=== PATIENT | male | born 1995 | race Caucasian/White ===

== ENCOUNTER 2018-11-04 01:34 | Emergency (ER) | payer OTHER ==
[2018-11-04] MEDS ORDERED: Sodium Chloride 0.9% 1000 ML 1,000 ML IV STA ×2 (01:41→03:02)
[2018-11-04] MEDS ORDERED: Zofran 4 MG/2 ML VIAL IV ONE (01:41)
--- NOTE | 2018-11-04 01:41 | ERPHSYRPT ---
- History of Present Illness Time Seen by Provider: 11/04/18 01:41 Source: patient, EMS Exam Limitations: clinical condition, intoxication Physician History: 23 y/o white male brought into ED for acute alcohol intoxication, passing out and vomiting. pt was in a parking lot with friends when this occurred. pt denies head injury. pt denies any other illicit drug ingestion. Timing/Duration: today Severity of Symptoms-Max: moderate Severity of Symptoms-Current: moderate Context related to: other (partying no suicidal intention) Suicidal thoughts: other (none) Previous symptoms: no prior history Allergies/Adverse Reactions: bismuth subsalicylate [From Pepto-Bismol] Allergy (Verified 11/04/18 01:38) cephalexin [From Keflex] Allergy (Verified 11/04/18 01:38) Home Medications: No Reportable Medications [No Reported Medications] 11/04/18 [History] - Past Medical History Neurological History: No Pertinent History ENT History: No Pertinent History Cardiac History: No Pertinent History Respiratory History: No Pertinent History Endocrine Medical History: No Pertinent History Musculoskeletal History: No Pertinent History GI Medical History: No Pertinent History History: No Pertinent History Psycho-Social History: No Pertinent History Male Reproductive Disorders: No Pertinent History - Past Surgical History Neuro Surgical History: No Pertinent History Cardiac: No Pertinent History Respiratory: No Pertinent History Gastrointestinal: No Pertinent History Genitourinary: No Pertinent History Musculoskeletal: No Pertinent History Male Surgical History: No Pertinent History - Review of Systems Constitutional: No Symptoms Eyes: No Symptoms Ears, Nose, & Throat: No Symptoms Respiratory: No Symptoms Cardiac: No Symptoms Abdominal/Gastrointestinal: No Symptoms Genitourinary Symptoms: No Symptoms Musculoskeletal: No Symptoms Neurological: Other (acute etoh intoxication) Psychological: No Symptoms Endocrine: No Symptoms Hematologic/Lymphatic: No Symptoms Immunological/Allergic: No Symptoms All Other Systems: Reviewed and Negative - Nursing Vital Signs Nursing Vital Signs: Initial Vital Signs Temperature 98.0 F 11/04/18 01:38 Pulse Rate 81 11/04/18 01:38 Respiratory Rate 18 11/04/18 01:38 Blood Pressure 115/68 11/04/18 01:38 O2 Sat by Pulse Oximetry 97 11/04/18 01:38 Pain Scale Pain Intensity 0 - Physical Exam General Appearance: no apparent distress, lethargy (mildly lethargic etoh intoxication) Eyes, Ears, Nose, Throat Exam: normal ENT inspection, TMs normal, moist mucous membranes Neck Exam: normal inspection, non-tender, supple, full range of motion Respiratory Exam: normal breath sounds, lungs clear, airway intact, No chest tenderness, No respiratory distress Cardiovascular Exam: regular rate/rhythm, normal heart sounds, normal peripheral pulses Gastrointestinal/Abdominal Exam: soft, normal bowel sounds, No tenderness Extremities Exam: normal inspection, normal range of motion, No evidence of injury Appearance: impaired insight (secondary to intoxication) Behavior/Eye Contact/Speech: intoxicated appearance Skin Exam: normal color, warm, dry SpO2 Interpretation: normal O2 Delivery: Room Air Ordered Tests: Active Orders 24 hr Category Date Time Status Clean Catch Urine Specimen STAT Care 11/04/18 01:41 Active HEAD WITHOUT CONTRAST [CT] Stat Exams 11/04/18 03:03 Taken ACETAMINOPHEN Stat Lab 11/04/18 02:04 Completed CBC W DIFF Stat Lab 11/04/18 02:04 Completed CMP Stat Lab 11/04/18 02:04 Completed ETHYL ALCOHOL Stat Lab 11/04/18 02:04 Completed SALICYLATE Stat Lab 11/04/18 02:04 Completed UA W/RFX UR CULTURE Stat Lab 11/04/18 04:36 Completed Urine Triage Profile Stat Lab 11/04/18 04:36 Completed Medication Summary Discontinued Medications Generic Name Dose Route Start Last Admin Trade Name Macarioq PRN Reason Stop Dose Admin Famotidine 40 mg 11/04/18 01:55 11/04/18 02:08 Pepcid 20 Mg Vial IV 11/04/18 01:56 40 mg STAT ONE Administration Famotidine Confirm 11/04/18 02:07 Pepcid 20 Mg Vial Administered 11/04/18 02:08 Dose 40 mg IV .STK-MED ONE Sodium Chloride 1,000 mls @ 999 mls/hr 11/04/18 01:41 11/04/18 03:17 Sodium Chloride 0.9% 1000 Ml IV 11/04/18 02:41 Infused .Q1H1M STA Infusion Sodium Chloride Confirm 11/04/18 01:56 Sodium Chloride 0.9% 1000 Ml Administered 11/04/18 01:57 Dose 1,000 mls @ ud .ROUTE .STK-MED ONE Potassium Chloride 20 meq in 100 mls @ 50 mls/hr 11/04/18 02:50 11/04/18 03: 12 Potassium Chloride 20 Meq In Water 100ml IV 11/04/18 04:49 50 mls/hr STAT ONE Administration Sodium Chloride 1,000 mls @ 999 mls/hr 11/04/18 03:02 11/04/18 04:42 Sodium Chloride 0.9% 1000 Ml IV 11/04/18 04:02 Infused .Q1H1M STA Infusion Sodium Chloride Confirm 11/04/18 03:06 Sodium Chloride 0.9% 1000 Ml Administered 11/04/18 03:07 Dose 1,000 mls @ ud .ROUTE .STK-MED ONE Potassium Chloride Confirm 11/04/18 03:07 Potassium Chloride 20 Meq In Water 100ml Administered 11/04/18 03:08 Dose 100 mls @ ud IV .STK-MED ONE Ondansetron HCl 4 mg 11/04/18 01:41 11/04/18 02:08 Zofran 4 Mg/2 Ml Vial IV 11/04/18 01:42 4 mg STAT ONE Administration Ondansetron HCl Confirm 11/04/18 01:56 Zofran 4 Mg/2 Ml Vial Administered 11/04/18 01:57 Dose 4 mg .ROUTE .STK-MED ONE Lab/Rad Data: Laboratory Result Diagrams 11/04/18 02:04 11/04/18 02:04 Laboratory Results 11/04/18 11/04/18 11/04/18 Range/Units 04:36 04:36 02:04 WBC (4.0-10.5) K/mm3 RBC (4.1-5.6) M/mm3 Hgb (12.5-18.0) gm/dl Hct (42-50) % MCV (78-100) fl MCH (26-32) pg MCHC (32-36) g/dl RDW (11.5-14.0) % Plt Count (150-450) K/mm3 MPV (6-9.5) fl Gran % (36.0-66.0) % Eos # (Auto) (0-0.5) Absolute Lymphs (auto) (1.0-4.6) Absolute Monos (auto) (0.0-1.3) Lymphocytes % (24.0-44.0) % Monocytes % (0.0-12.0) % Eosinophils % (0.00-5.0) % Basophils % (0.0-0.4) % Absolute Granulocytes (1.4-6.9) Basophils # (0-0.4) Sodium 142 (137-145) mmol/L Potassium 3.2 L (3.5-5.1) mmol/L Chloride 108 H (98-107) mmol/L Carbon Dioxide 21 L (22-30) mmol/L Anion Gap 16.7 H (5-15) MEQ/L BUN 9 (9-20) mg/dL Creatinine 0.87 (0.66-1.25) mg/dL Estimated GFR > 60.0 ML/MIN Glucose 126 H (74-106) mg/dL Calcium 8.4 (8.4-10.2) mg/dL Total Bilirubin 0.60 (0.2-1.3) mg/dL AST 49 (17-59) U/L ALT 51 H (0-50) U/L Alkaline Phosphatase 51 (38-126) U/L Serum Total Protein 6.7 (6.3-8.2) g/dL Albumin 4.3 (3.5-5.0) g/dL Urine Color STRAW (YELLOW) Urine Appearance CLEAR (CLEAR) Urine pH 7.0 (5-6) Ur Specific Forbes 1.004 (1.005-1.025) Urine Protein NEGATIVE (Negative) Urine Ketones NEGATIVE (NEGATIVE) Urine Blood NEGATIVE (0-5) Kurtis/ul Urine Nitrite NEGATIVE (NEGATIVE) Urine Bilirubin NEGATIVE (NEGATIVE) Urine Urobilinogen NEGATIVE (0-1) mg/dL Ur Leukocyte Esterase NEGATIVE (NEGATIVE) Urine WBC (Auto) NONE (0-5) /HPF Urine RBC (Auto) NONE (0-2) /HPF U Epithel Cells (Auto) NONE (FEW) /HPF Urine Bacteria (Auto) NONE (NEGATIVE) /HPF Urine Culture Reflexed NO (NO) Urine Glucose NEGATIVE (NEGATIVE) mg/dL Salicylates < 1.0 L (2-20) mg/dL Urine Opiates Level NEGATIVE (NEGATIVE) Ur Methadone NEGATIVE (NEGATIVE) Acetaminophen < 10 L (10-30) ug/ml Urine Barbiturates NEGATIVE (NEGATIVE) Ur Phencyclidine (PCP) NEGATIVE (NEGATIVE) Urine Amphetamine NEGATIVE (NEGATIVE) U Benzodiazepine Level NEGATIVE (NEGATIVE) Urine Cocaine NEGATIVE (NEGATIVE) Urine Marijuana (THC) POSITIVE (NEGATIVE) Ethyl Alcohol 161 H (0-10) mg/dL 11/04/18 Range/Units 02:04 WBC 6.6 (4.0-10.5) K/mm3 RBC 4.80 (4.1-5.6) M/mm3 Hgb 14.9 (12.5-18.0) gm/dl Hct 43.6 (42-50) % MCV 90.8 (78-100) fl MCH 31.0 (26-32) pg MCHC 34.2 (32-36) g/dl RDW 13.4 (11.5-14.0) % Plt Count 205 (150-450) K/mm3 MPV 9.9 H (6-9.5) fl Gran % 58.1 (36.0-66.0) % Eos # (Auto) 0.01 (0-0.5) Absolute Lymphs (auto) 2.20 (1.0-4.6) Absolute Monos (auto) 0.52 (0.0-1.3) Lymphocytes % 33.6 (24.0-44.0) % Monocytes % 7.9 (0.0-12.0) % Eosinophils % 0.2 (0.00-5.0) % Basophils % 0.2 (0.0-0.4) % Absolute Granulocytes 3.81 (1.4-6.9) Basophils # 0.01 (0-0.4) Sodium (137-145) mmol/L Potassium (3.5-5.1) mmol/L Chloride (98-107) mmol/L Carbon Dioxide (22-30) mmol/L Anion Gap (5-15) MEQ/L BUN (9-20) mg/dL Creatinine (0.66-1.25) mg/dL Estimated GFR ML/MIN Glucose (74-106) mg/dL Calcium (8.4-10.2) mg/dL Total Bilirubin (0.2-1.3) mg/dL AST (17-59) U/L ALT (0-50) U/L Alkaline Phosphatase (38-126) U/L Serum Total Protein (6.3-8.2) g/dL Albumin (3.5-5.0) g/dL Urine Color (YELLOW) Urine Appearance (CLEAR) Urine pH (5-6) Ur Specific Forbes (1.005-1.025) Urine Protein (Negative) Urine Ketones (NEGATIVE) Urine Blood (0-5) Kurtis/ul Urine Nitrite (NEGATIVE) Urine Bilirubin (NEGATIVE) Urine Urobilinogen (0-1) mg/dL Ur Leukocyte Esterase (NEGATIVE) Urine WBC (Auto) (0-5) /HPF Urine RBC (Auto) (0-2) /HPF U Epithel Cells (Auto) (FEW) /HPF Urine Bacteria (Auto) (NEGATIVE) /HPF Urine Culture Reflexed (NO) Urine Glucose (NEGATIVE) mg/dL Salicylates (2-20) mg/dL Urine Opiates Level (NEGATIVE) Ur Methadone (NEGATIVE) Acetaminophen (10-30) ug/ml Urine Barbiturates (NEGATIVE) Ur Phencyclidine (PCP) (NEGATIVE) Urine Amphetamine (NEGATIVE) U Benzodiazepine Level (NEGATIVE) Urine Cocaine (NEGATIVE) Urine Marijuana (THC) (NEGATIVE) Ethyl Alcohol (0-10) mg/dL - Progress Progress: improved Counseled pt/family regarding: lab results, diagnosis, need for follow-up, rad results - Departure Departure Disposition: Home Clinical Impression: Alcohol intoxication Condition: Stable Critical Care Time: No Referrals: JAMILAH YANEZ [Primary Care Provider] - Additional Instructions: follow up with primary doctor for further management
[2018-11-04] MEDS ORDERED: Pepcid 20 MG VIAL IV ONE ×2 (01:55→02:07)
[2018-11-04] MEDS ORDERED: Sodium Chloride 0.9% 1000 ML 1,000 ML ONE ×2 (01:56→03:06)
[2018-11-04] MEDS ORDERED: Zofran 4 MG/2 ML VIAL ONE (01:56)
[2018-11-04 02:02] LABS: BASOPHIL % 0.2 % (0.0-0.4); Basophil (Absolute #) 0.01 (0-0.4); Eosinophil % 0.2 % (0.00-5.0); Eosinophil (Absolute #) 0.01 (0-0.5); Granulocyte Absolute (ANC) 3.81 (1.4-6.9); Granulocytes % 58.1 % (36.0-66.0); Hematocrit 43.6 % (42-50); Hemoglobin 14.9 gm/dl (12.5-18.0); Lymphocytes % 33.6 % (24.0-44.0); Mean Cell Volume 90.8 fl (78-100); Mean Corpuscular Hgb Concent. 34.2 g/dl (32-36); Mean Platelet Volume 9.9 fl (6-9.5); Monocyte (Absolute #) 0.52 (0.0-1.3); Monocytes % 7.9 % (0.0-12.0); Platelet Count 205 K/mm3 (150-450); Red Cell Distribution Width 13.4 % (11.5-14.0); White Blood Count 6.6 K/mm3 (4.0-10.5)
[2018-11-04 02:18] LABS: ALBUMIN 4.3 g/dL (3.5-5.0); ALKALINE PHOSPHATASE 51 U/L (38-126); ANION GAP 16.7 MEQ/L (5-15); BLOOD UREA NITROGEN 9 mg/dL (9-20); CHLORIDE 108 mmol/L (98-107); Calcium 8.4 mg/dL (8.4-10.2); Carbon Dioxide 21 mmol/L (22-30); Creatinine 1 0.87 mg/dL (0.66-1.25); ETHYL ALCOHOL 161 mg/dL (0-10); Glucose 126 mg/dL (74-106); Potassium 3.2 mmol/L (3.5-5.1); SGOT/AST 49 U/L (17-59); SGPT/ALT 51 U/L (0-50); SODIUM 142 mmol/L (137-145); Total Protein 6.7 g/dL (6.3-8.2)
[2018-11-04 02:23] LABS: ACETAMINOPHEN < 10 ug/ml (10-30); SALICYLATE < 1.0 mg/dL (2-20)
[2018-11-04] MEDS ORDERED: POTASSIUM CHLORIDE 20 mEq IN WATER 100ML 20 MEQ/100 ML BAG IV ONE (02:50)
[2018-11-04] MEDS ORDERED: POTASSIUM CHLORIDE 20 mEq IN WATER 100ML 100 ML IV ONE (03:07)
[2018-11-04 04:38] LABS: Appearance CLEAR (CLEAR); Bilirubin NEGATIVE (NEGATIVE); Blood NEGATIVE Ery/ul (0-5); Glucose NEGATIVE (NEGATIVE); Ketones NEGATIVE (NEGATIVE); Leukocyte Esterase NEGATIVE (NEGATIVE); Nitrite NEGATIVE (NEGATIVE); Protein,Urine Dip NEGATIVE (Negative); Specific Gravity 1.004 (1.005-1.025); Urobilinogen NEGATIVE mg/dL (0-1)
[2018-11-04 04:52] LABS: Amphetamine,Urine NEGATIVE (NEGATIVE); Barbiturate,Urine NEGATIVE (NEGATIVE); Benzodiazepine,Urine NEGATIVE (NEGATIVE); Cocaine,Urine NEGATIVE (NEGATIVE); Methadone,Urine NEGATIVE (NEGATIVE); Opiate,Urine NEGATIVE (NEGATIVE); PCP,Urine NEGATIVE (NEGATIVE); THC,Urine POSITIVE (NEGATIVE)
[2018-11-04 05:28] VITALS: BP 105/58; PULSE 72; O2SAT 99
--- NOTE | 2018-11-04 08:58 | XRAY ---
Indication: Vomiting and syncope. Acute mental status change. Alcohol. Multiple contiguous axial images obtained through the head without contrast. Comparison: February 17, 2009. Again normal appearing brain parenchyma, ventricles, and bony calvarium. Mild mucosal thickening of the visualized left maxillary sinus. Remaining visualized paranasal sinuses and mastoid air cells are clear. Impression: Normal CT head without contrast exam. Incidental left maxillary sinus disease. Comment: Preliminary interpretation was made by [facility]. No critical discrepancy. CTDI 62.53
== END 2018-11-04 05:28 | disposition home or self-care (01) ==
LOC: ED 01:34
DX: F10.129 Alcohol abuse with intoxication, unspecified (principal)
CPT/HCPCS: 36415; 70450; 80053; 80307; 81001; 85025; 93041; 96360; 96361; 96365; 96374; 96375; 99284; G0481; J2405; J3480; G0480